=== PATIENT | male | born 1965 ===

== ENCOUNTER 2024-05-29 15:08 | Outpatient (REF) | payer SELFPAY ==
[2024-05-29 17:01] LABS: Alanine Aminotransferase 21 U/L (0-40); Albumin Level 3.8 g/dL (3.5-5.0); Aspartate Amino Transferase 30 U/L (5-37); Bilirubin Direct 0.1 mg/dL (0.0-0.5); Bilirubin Total 0.4 mg/dL (0.0-1.0); Total Protein 7.4 g/dL (6.5-8.0)
[2024-05-29 17:06] LABS: Alkaline Phosphatase 81 U/L (39-117)
--- OUTSIDE RECORDS SUMMARY | 2024-05-29 17:09 | XMS_ITS ---
Author Organization [facility] Address [address] [place] [address] Care Team Providers Care Preload Supervisor Name Role Phone Christofer Sharma III Primary Care Provider Unavailab le Clinical, Operations Unavailable Unavailable ALLERGIES No Known Allergies REASON FOR VISIT MDS assessment MEDICATIONS Medication SIG (Take, Route, Fr equency, Duration) Notes Start Date End Date Status Naproxen 500 MG 1 tablet with food o r milk as needed Orally every 12 hrs Activ e Methadone HCl 40 MG 1 tablet in 4 ounces of water or juice Orally Once a day Active PROBLEMS Problem Type ICD Code Onset Dates Problem Status W/U Status Risk SNOMED Code Notes Problem Primary osteoarthritis of shoulder, unspecified laterality (M19.019) Active confirmed 75720830 Problem Low back pain with left-sided sciatica, unspecified back pain laterality, unspecified chronicity (M54.42) Active confirmed Problem Claustrophobia (F40.240) Active confirmed Problem Opioid abuse, uncomplicated (F11.10) Active confirmed 5986286 Problem Anemia, unspecified type (D64.9) Active confirmed [id number] Encounters Encounter Location Date Provider Diagnosis [address] [place] [address] 05/12/2023 Operations Clinical Other chronic pain G89.29 ; Difficulty in walking R26.2 ; Opioid dependence in remission F11.21 ; MDD (major depressive disorder), recurrent episode, moderate F33.1 ; Primary osteoarthritis of shoulder, unspecified laterality M19.019 ; Low back pain with left-sided sciatica, unspecified back pain laterality, unspecified chronicity M54.42 ; Claustrophobia F40.240 ; Opioid abuse, uncomplicated F11.10 and Anemia, unspecified type D64.9 ASSESSMENTS Encounter Date Diagnosis Assessment Notes Treatment Notes Treatment Clinical Notes 05/12/2023 Other chronic pain (ICD-10 - G89.29) 05/12/2023 Difficulty in walkin g (ICD-10 - R26.2) 05/12/2023 Opioid dependence in remission (ICD-10 - F11.21) 05/12/2023 MDD (major depressiv e disorder), recurrent episode, moderate (ICD-10 - F33.1) 05/12/2023 Primary osteoarthritis of shoulder, unspecified laterality (ICD-10 - M19.019) 05/12/2023 Low back pain with left-sided sciatica, unspecified back pain laterality, unspecified chronicity (ICD-10 - M54.42) 05/12/2023 Claustrophobia (ICD-10 - F40.240) 05/12/2023 Opioid abuse, uncomplicated (ICD-10 - F11.10) 05/12/2023 Anemia, unspecified type (ICD-10 - D64.9) PLAN OF TREATMENT No Information History and Physical Notes * HPI (History of Present Illness) Category Sub-Category Detail Notes COVID-19 Screening (Question s Revised 09/25/2019) COVID-19 Screening Member or any household memb er has any new or worsening breathing problems:: No Member or any household memb er has other general or non-respiratory symptoms:: No Member or any household memb er has been in close contact with anyone diagnosed or suspected case of COVID:: No Virtual Care Visit Information Visit Location, Methods & Consent: *REQUIRED* Virtual Care communication method:: Phone (audio only) Patient's location during visit:: Member 's home Provider's location during visit:: Deanne rosenberg's home office Member Verbal Consent Obtained:: Yes
--- OUTSIDE RECORDS SUMMARY | 2024-05-29 17:10 | XMS_ITS | Patient Health Record ---
Author Organization [facility] Address [address] [place] [address] Care Team Providers Care Animal Physiologist Name Role Phone Christofer Sharma III Primary Care Provider Unavailab le ALLERGIES No Known Allergies REASON FOR REFERRAL No Information MEDICATIONS Medication SIG (Take, Route, Fr equency, Duration) Notes Start Date End Date Status Naproxen 500 MG 1 tablet with food o r milk as needed Orally every 12 hrs Activ e Methadone HCl 40 MG 1 tablet in 4 ounces of water or juice Orally Once a day Active IMMUNIZATIONS Vaccine Route Administration Date Status Comme nts [employer] COVID-19 Vac cine 12+ IM Unknown 09/17/2021 Administered Pf[employer] COVID-19 Vac cine 12+ IM Unknown 10/08/2021 Administered PROBLEMS Problem Type ICD Code Onset Dates Problem Status W/U Status Risk SNOMED Code Notes Problem Other chronic pain (G89.29) Active confirmed [id number] Problem Difficulty in walking (R26.2) Active confirmed 025625279 Problem Claustrophobia (F40.240) Active confirmed 21305108 Problem Opioid dependence in remission (F11.21) Active confirmed Opioid dependence in remission ([id number]) Problem MDD (major depressive disorder), recurrent episode, moderate (F33.1) Active confirmed Moderate recurrent major depression (20147814) Problem Opioid abuse, uncomplicated (F11.10) Active confirmed 1295144 Problem Anemia, unspecified type (D64.9) Active confirmed 392234581 Problem Low back pain with left-sided sciatica, unspecified back pain laterality, unspecified chronicity (M54.42) Active confirmed 572410250 Problem Primary osteoarthritis of shoulder, unspecified laterality (M19.019) Active confirmed 74108850 PLAN OF TREATMENT No Information Insurance Providers Payer Name Payer Address Payer Phone Subscriber Number Group Number Insured Name Patient Relationship to Insured Coverage Start Date Coverage End Date [address] [place] [address] [id number] MESSI MELGAR Self - patient is the insured 1 9 MEDICAL (GENERAL) HISTORY Medical History History ICD Code Opioid dependence on agonist therapy F11 .20 Depression, unspecified depression type F32.9
[2024-05-30 08:19] LABS: Hepatitis A Antibody IgG Nonreactive (Nonreactive); ~Hepatitis A Antibody IgG 0.37 S/CO (0.00-0.99)
[2024-05-30 08:50] LABS: HBS Num1 0.77 mIU/mL (0-7.99); HBc Num1 0.13 S/CO (0.00-0.79); HBsAGNum1 0.36 S/CO (0.00-0.99); HIV AB/AG Nonreactive (Nonreactive); HIV Num 1 0.05 S/CO (0.00-0.99); Hepatitis B Core Antibody Nonreactive (Nonreactive); Hepatitis B Surface Antigen Negative (Negative); ~HepC Num1 0.15 S/CO (0.00-0.79); ~Hepatitis B Surface Antibody NONREACTIVE (Nonreactive); ~Hepatitis C Antibody Nonreactive (Nonreactive)
[2024-05-30 16:58] LABS: RPR Rapid Plasma Reagin NON-REACTIVE (NON-REACTIVE)
[2024-05-31 21:48] LABS: TS Negative Control Passed; TS Panel A 0; TS Panel B 1; TS Positive Control Passed; TSpotTB Negative (Negative)
== END 2024-05-29 15:09 | disposition home or self-care (01) ==
LOC: HO.HHCL 15:08
PROVIDERS: Visit Provider Emergency Medicine
DX: F11.20 Opioid dependence, uncomplicated (principal)
CPT/HCPCS: 36415; 80076; 86481; 86592; 86704; 86706; 86708; 86803; 87340; 87389